=== PATIENT | female | born 1980 | race African-American/Black ===

== ENCOUNTER 2019-01-22 15:46 | Inpatient (IN) | payer BC, OTHER ==
[2019-01-22] VITALS (22 sets, daily range): BP systolic 109–151; BP diastolic 59–95
[~2019-01-22] VITALS: Ht 167.6 cm; Wt 66.3 kg
--- NOTE | 2019-01-22 15:50 | NUR ---
SEEN AND EXAMINED BY DR. NICOLE.
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
[2019-01-22] MEDS ORDERED: IV NS 0.9% 1,000 ML BAG IV ONE (16:00)
--- NOTE | 2019-01-22 16:00 | NUR ---
IV LINE ESTABLISHED, LABS DRAWNED AND SENT TO LAB.
[2019-01-22] MEDS ORDERED: DOCU100C36 PO (16:05)
[2019-01-22] MEDS ORDERED: FURO20TA4 PO (16:05)
[2019-01-22] MEDS ORDERED: LACT10SO PO (16:05)
[2019-01-22] MEDS ORDERED: FERR325T23 PO (16:05)
[2019-01-22] MEDS ORDERED: PROP10TA68 PO (16:05)
[2019-01-22] MEDS ORDERED: MAGN400O6 PO (16:05)
[2019-01-22] MEDS ORDERED: OMEG1CAP PO (16:05)
[2019-01-22] MEDS ORDERED: SPIR25TA6 PO (16:05)
[2019-01-22] MEDS ORDERED: MULT1TAB69 PO (16:05)
[2019-01-22] MEDS ORDERED: GABA-532 PO (16:05)
[2019-01-22] MEDS ORDERED: HYDR-3972 PO (16:05)
[2019-01-22] MEDS ORDERED: LANS15CA15 PO (16:05)
[2019-01-22] MEDS ORDERED: THIA100T74 PO (16:06)
--- NOTE | 2019-01-22 16:09 | NUR ---
COMPUTER GAME TESTER/MED RECON HISTORY AND MEDICATION INFORMATION OBTAINED FROM PATIENT PCP OFFICE (DR. MARILYN MIGUEL [phone]).
[2019-01-22 16:11] LABS: BASOPHILS % (AUTO) 1.2 % (0.0-2.0); LYMPHOCYTES # (AUTO) 0.8 /CMM (0.8-4.8); LYMPHOCYTES % (AUTO) 23.8 % (20.0-44.0); MEAN CORPUSCULAR HGB CONC 33 g/dl (31.0-36.0); MEAN CORPUSCULAR VOLUME 94 fL (82-100); MONOCYTES # (AUTO) 0.5 /CMM (0.1-1.30); NEUTROPHILS # (AUTO) 1.9 /CMM (1.8-8.9); PLATELET COUNT (AUTO) 59 /CMM (150-450); RED BLOOD CELL COUNT(AUTO) 2.27 MIL/uL (4.0-5.2); WHITE BLOOD COUNT (AUTO) 3.2 K/uL (4.3-11.0)
[2019-01-22 16:14] LABS: HEMOGLOBIN 6.9 g/dL (11.5-14.8)
[2019-01-22 16:15] LABS: HEMATOCRIT 21 % (33-45)
[2019-01-22 16:19] LABS: APPEARANCE,URINE Clear (CLEAR); BILIRUBIN,URINE Negative (NEGATIVE); BLOOD, URINE Negative Ery/uL (NEGATIVE); COLOR,URINE Yellow (YELLOW); KETONES,URINE Negative (NEGATIVE); LEUKOCYTE ESTERASE ,URINE Negative (NEGATIVE); NITRITE, URINE Negative (NEGATIVE); PH,URINE 8.5 (5.0-8.0); PROTEIN,URINE Negative (NEGATIVE); UGLUCOSE Negative (NEGATIVE)
--- NOTE | 2019-01-22 16:28 | NUR ---
Called pharmacy re: Lactulose order. Lactulose enema available from pharmacy. approved.
[2019-01-22] MEDS ORDERED: LACTULOSE UDC 200 G in SODIUM CHLORIDE IRRIG SOLUTION 400 ML IR ONE (16:30)
[2019-01-22] MEDS ORDERED: MISCELLANEOUS MED 1 EA EA XX ONE (16:30)
--- NOTE | 2019-01-22 16:31 | NUR ---
LITIGATION ASSOCIATE AT BEDSIDE FOR XRAY.
[2019-01-22 16:35] LABS: BACTERIA,URINE None seen /HPF (None Seen); RBC,URINE 0-2 /HPF (0-2); SQUAMOUS EPITHELIAL CELL,UR Few /HPF (None Seen); WBC,URINE NONE SEEN /HPF (0-3)
[2019-01-22 16:37] LABS: ALBUMIN 2.4 g/dL (3.4-5.0); BILIRUBIN,DIRECT 3.1 mg/dL (0.0-0.2); BILIRUBIN,TOTAL 5.7 mg/dL (0.2-1.0); CALCIUM, SERUM 7.6 mg/dL (8.5-10.1); CREATININE 0.7 mg/dL (0.6-1.3); POTASSIUM 4.1 mmol/L (3.5-5.1); TOTAL PROTEIN, SERUM 5.9 g/dL (6.4-8.2)
--- NOTE | 2019-01-22 16:40 | NUR ---
PT IS WHEELED TO CT SCAN VIA [facility].
--- NOTE | 2019-01-22 16:42 | NUR ---
REC'D LACTULOSE ENEMA FROM PHARMACY. DID NOT ADMINISTER THE UDC OR MISC DOSE ORDERED BY DR. INCOLE.
--- NOTE | 2019-01-22 16:43 | NUR ---
[facility] WAS CALLED AND AUTOMOBILE BRAKES BONDER WAS PAGED
[2019-01-22] MEDS ORDERED: LACTULOSE 10 G/15 ML UDC (PYXIS) PR ONE (17:00)
--- NOTE | 2019-01-22 17:02 | NUR ---
LACTULOSE ENEMA GIVEN USING SOUP SAD ENEMA BAG.
[2019-01-22 17:07] LABS: ACETAMINOPHEN 0 ug/ml (10-30); ALCOHOL, BLOOD < 3 mg/dL (0-0)
--- NOTE | 2019-01-22 17:09 | NUR ---
[facility] WAS CALLED AGAIN AND THE DR WAS PAGED
--- NOTE | 2019-01-22 17:11 | NUR ---
TALKED TO DEVIN LUMPIA WRAPPER MAKER REGARDING PATIENT'S STATUS.
[2019-01-22 17:14] LABS: LYMPHOCYTES % (MANUAL) 25 % (16-48); NEUTROPHILS % (MANUAL) 64 (42-76)
[2019-01-22 17:15] LABS: EOSINOPHILS % (MANUAL) 1 % (0-4); MONOCYTES % (MANUAL) 10 % (0-11.0)
--- NOTE | 2019-01-22 17:21 | NUR ---
[facility] CALLED BACK TO CONFIRM IF THE REGIONAL TRUCK DRIVER HAD CALLED BACK. STILL WAITING FOR REGIONAL TRUCK DRIVER
--- NOTE | 2019-01-22 17:44 | NUR ---
HOUSE SUP CALLED FOR ICU BED
--- NOTE | 2019-01-22 17:48 | NUR ---
ICU 256 BED GIVEN
--- NOTE | 2019-01-22 18:00 | NUR ---
Ronnie cortes in [facility] - 01/22/19 at 1818 by KRISTAN ICU BED 256 GIVEN
--- NOTE | 2019-01-22 18:08 | NUR ---
REPORT GIVEN TO AMANDEEP FOFANA FOR KENA.
[2019-01-22 18:11] LABS: ABG BASE EXCESS -1.8 mmol/L; ABG PCO2 23.4 mmHg (35.0-45.0); ABG PH 7.553 (7.350-7.450); ABG PO2 103.7 mmHg (75.0-100.0); COHb 1.8 % (0.5-1.5); MetHb 0.7 % (0.0-1.5); O2Hb 94.6 % (94.0-97.0); SITE, ABG Right Brachial; VENT MODE, BG ROOM AIR
[2019-01-22] MEDS ORDERED: Z GUARD REMEDY 2 OZ OINT TP PRN (19:00)
[2019-01-22] MEDS ORDERED: prednisoLONE 5 MG/5 ML UDC PO ONE (19:00)
[2019-01-22] MEDS ORDERED: ACETAMINOPHEN 325 MG TABLET PO PRN (19:00)
[2019-01-22] MEDS ORDERED: ONDANSETRON HCL/PF 4 MG/2 ML VIAL IVP PRN (19:00)
[2019-01-22] MEDS ORDERED: PHYTONADIONE INJ 10 MG/1 ML AMPUL SQ ONE (19:30)
[2019-01-22] MEDS: IV NS 0.9% 1,000 ML IV PRN (20:11)
--- NOTE | 2019-01-22 20:30 | NUR ---
1924 Received patient from ED via gurney unresponsive transferred to bed and made comfortable. Dx: Hepatic Encephalopathy.SR.VS stable.NPO status.Saline lock to right wrist got infiltrated when flushed and removed with needle intact.IVF NS started.With multiple bruises over the body Phots taken.FC to gravity.Continue monitoring.
--- NOTE | 2019-01-22 20:40 | NUR ---
NGT FR# 16 inserted to right nares.Placement verified by 2 RN.Patient tolerated procedure well.
[2019-01-22] MEDS: PENTOXIFYLLINE 400 MG TABLET.SA PO SCH (20:49)
[2019-01-22] MEDS ORDERED: IV NS 0.9% 250 ML IV ONE (21:30)
--- NOTE | 2019-01-22 22:00 | NUR ---
Patient desat to 89%.Place on 2L NC SPO2 up to 94%.No acute respiratory distress noted.
[2019-01-23] VITALS (35 sets, daily range): BP systolic 94–143; BP diastolic 52–102
--- NOTE | 2019-01-23 | NUR ---
Patient ammonia level 248.Lactulose given as ordered.Patient with large loose stools with blood clots.Bed bath rendered and complete linens changed.Turned and repositioned.Patient open her eyes during bath but still not following commands.
[2019-01-23] MEDS: LACTULOSE 10 G/15 ML UDC (PYXIS) GT SCH ×4 (00:05→17:38)
--- NOTE | 2019-01-23 02:00 | NUR ---
Patient H/H 6.08/04 One PRBC transfused without adverse reaction.VS stable.
[2019-01-23 05:16] LABS: BASOPHILS % (AUTO) 0.2 % (0.0-2.0); HEMATOCRIT 23 % (33-45); HEMOGLOBIN 7.8 g/dL (11.5-14.8); LYMPHOCYTES # (AUTO) 0.3 /CMM (0.8-4.8); LYMPHOCYTES % (AUTO) 13.5 % (20.0-44.0); MEAN CORPUSCULAR HGB CONC 34 g/dl (31.0-36.0); MEAN CORPUSCULAR VOLUME 92 fL (82-100); MONOCYTES # (AUTO) 0.2 /CMM (0.1-1.30); MONOCYTES % (AUTO) 10.2 % (2.0-12.0); NEUTROPHILS # (AUTO) 1.7 /CMM (1.8-8.9); NEUTROPHILS % (AUTO) 76.1 % (43.0-81.0); RED BLOOD CELL COUNT(AUTO) 2.52 MIL/uL (4.0-5.2); WHITE BLOOD COUNT (AUTO) 2.2 K/uL (4.3-11.0)
[2019-01-23 05:22] LABS: ALBUMIN 2.3 g/dL (3.4-5.0); CALCIUM, SERUM 7.6 mg/dL (8.5-10.1); CREATININE 0.8 mg/dL (0.6-1.3); MAGNESIUM 1.5 mg/dL (1.8-2.4); PHOSPHORUS 3.7 mg/dL (2.5-4.9); POTASSIUM 3.5 mmol/L (3.5-5.1); TOTAL PROTEIN, SERUM 5.7 g/dL (6.4-8.2)
[2019-01-23 05:26] LABS: THYROID STIMULATING HORMONE 0.602 uIU/mL (0.358-3.74)
[2019-01-23 05:45] LABS: PLATELET COUNT (AUTO) 49 /CMM (150-450)
[2019-01-23 06:18] LABS: LYMPHOCYTES % (MANUAL) 15 % (16-48)
[2019-01-23 06:19] LABS: MONOCYTES % (MANUAL) 10 % (0-11.0); NEUTROPHILS % (MANUAL) 75 (42-76)
--- NOTE | 2019-01-23 07:00 | NUR ---
Patient latest H/H 6.12/01 relayed to with orders received and carried out.To transfuse 2 more units PRBC.Report given to day shift RN for continuity of care. Addendum: 01/23/19 at 0721 by ANEUDY VAZQUEZ RN Wrong entry please disregard.Belongs to another patient.
--- NOTE | 2019-01-23 07:00 | NUR ---
Patient remains unresponsive had another large loose BM Burgundy colored.Kept clean and dry. Turned and repositioned.Platelets 49 relayed to Kinga Castaneda NP.No orders received.Report given to day shift RN for continuity of care.
--- NOTE | 2019-01-23 07:50 | NUR ---
RN NOTE RECEIVED PATIENT ALERT AND NONVERBAL ,BUT IS ABLE TO OPEN EYES TO VOICE AND TACTILE STIMULI. BREATHING EVEN AND UNLABORED WITH NO DISTRESS NOTED. ON RN CRITICAL CARE HR 108. NOTED WITH MULTIPLE BRUISING AND RIGHT EYE SWELLING AND BILATERAL UPPER EXTREMITY EDEMA. IV SITE INTACT AND PATIENT WITH ONGOING FLUIDS ORDERED. ALL SAFETY MEASURES DONE . BED LOW AND LOCKED POSITION WILL CONTINUE TO MONITOR PATIENT CLOSELY
[2019-01-23] MEDS: IV NS 0.9% 1,000 ML IV PRN (08:43)
[2019-01-23] MEDS: PENTOXIFYLLINE 400 MG TABLET.SA PO SCH ×3 (09:26→17:38)
[2019-01-23 10:23] LABS: OCCULT BLOOD STOOL POSITIVE (NEGATIVE)
[2019-01-23] MEDS: Magnesium 1GM/D5W 100ML PREMIX 100 ML IV SCH ×2 (10:57→11:58)
--- NOTE | 2019-01-23 14:25 | NUR ---
RN NOTE CALLED MD, PATIENT NON-COMPLIANT WANTING TO GET OUT OF BED, NEW ORDERS RECEIVED OK FOR BILATERAL WRIST RESTRAINTS.
--- NOTE | 2019-01-23 16:45 | NUR ---
RN NOTE BILATERAL RESTRAINTS IN PLACE, GOOD CIRCULATION, SKIN CHECK DONE, AND RELEASE OF RESTRAINT WAS DONE. WILL CONTINUE TO MONITOR PATIENT ON RESTRAINTS.
--- NOTE | 2019-01-23 18:48 | NUR ---
RN NOTE PATIENT REMAINED STABLE THROUGHOUT SHIFT. NO ACUTE CHANGES OR DISTRESS NOTED. WILL ENDORSE TO NEXT SHIFT TO CONTINUE TO MONITOR PATIENT CONTINUITY OF CARE.
--- NOTE | 2019-01-23 19:30 | NUR ---
HEARING CARE PRACTITIONER NOTE RECEIVED PT A/O X1 AND NOTED WITH CONFUSION AND INAPPROPRIATE WORDS. ON ROOM AIR AND SATURATING WELL. BREATHING REGULAR AND UNLABORED. R NARE NGT IN PLACE AND CLAMPED. NOTED TO BE RESTLESS, AGITATED AND TRYING TO GET OUT OF BED. ON BILATERAL SOFT WRIST RESTRAINTS WITH BILATERAL RADIAL PULSES PALPABLE BILATERALLY. BED ALARM ENABLED AND BED LOCKED IN PLACE. WILL CONTINUE TO MONITOR.
[2019-01-24] VITALS (37 sets, daily range): BP systolic 69–170; BP diastolic 30–128
--- NOTE | 2019-01-24 | NUR ---
CONVENTIONAL MACHINIST NOTE PT NOTED WITH DIARRHEA. SPOKE WITH PLANT TECHNICIAN/CONTROL ROOM OPERATOR KELSI DUPLICATING MACHINE MECHANIC WITH ORDERS TO INSERT RECTAL TUBE. ORDERS NOTED AND CARRIED OUT. WILL MONITOR.
[2019-01-24] MEDS: LACTULOSE 10 G/15 ML UDC (PYXIS) GT SCH ×4 (01:00→17:27)
[2019-01-24] MEDS: IV NS 0.9% 1,000 ML IV PRN (01:00)
[2019-01-24 04:40] LABS: BASOPHILS % (AUTO) 0.5 % (0.0-2.0); EOSINOPHILS % (AUTO) 0.4 % (0.0-6.0); HEMATOCRIT 22 % (33-45); HEMOGLOBIN 7.4 g/dL (11.5-14.8); LYMPHOCYTES # (AUTO) 0.7 /CMM (0.8-4.8); LYMPHOCYTES % (AUTO) 17.6 % (20.0-44.0); MEAN CORPUSCULAR HGB CONC 33 g/dl (31.0-36.0); MEAN CORPUSCULAR VOLUME 93 fL (82-100); MONOCYTES # (AUTO) 0.5 /CMM (0.1-1.30); NEUTROPHILS # (AUTO) 2.9 /CMM (1.8-8.9); NEUTROPHILS % (AUTO) 69.5 % (43.0-81.0); RED BLOOD CELL COUNT(AUTO) 2.39 MIL/uL (4.0-5.2); WHITE BLOOD COUNT (AUTO) 4.2 K/uL (4.3-11.0)
[2019-01-24 04:49] LABS: PLATELET COUNT (AUTO) 48 /CMM (150-450)
[2019-01-24 05:06] LABS: ALBUMIN 2.6 g/dL (3.4-5.0); BILIRUBIN,TOTAL 6.4 mg/dL (0.2-1.0); CALCIUM, SERUM 8.4 mg/dL (8.5-10.1); CREATININE 0.9 mg/dL (0.6-1.3); MAGNESIUM 1.9 mg/dL (1.8-2.4); TOTAL PROTEIN, SERUM 6.2 g/dL (6.4-8.2)
[2019-01-24 05:15] LABS: LYMPHOCYTES % (MANUAL) 10 % (16-48); MONOCYTES % (MANUAL) 5 % (0-11.0); NEUTROPHILS % (MANUAL) 85 (42-76)
--- NOTE | 2019-01-24 05:45 | NUR ---
TIMBER PACKER NOTE PT PULLED OUT BOTH IV'S. PT CLEANED UP AND MADE COMFORTABLE. NURSE AND CHARGE TRIED INSERTING NEW PERIPHERAL IV AND UNABLE TO DO SO. SPOKE WITH INKING MACHINE TENDER KELSI CARUSO WITH ORDERS FOR MIDLINE AND TO KEEP PT WITHOUT IV ACCESS THROUGH THE MORNING UNTIL MIDLINE INSERTION. ORDERS NOTED AND CARRIED OUT.
--- NOTE | 2019-01-24 07:30 | NUR ---
ngt PULLED OUT DESPITE RESTRAINTS
--- NOTE | 2019-01-24 07:53 | NUR ---
WOUND CARE CONSULT: PT PRESENTS WITH MULTIPLE AREAS OF BRUISING AND BLISTERS TO RT FOREARM, PRESENT ON ADMISSION. PT DEMONSTRATES ABILITY TO ASSIST WITH TURNING AND REPOSITIONING IN BED. RECTAL TUBE IN PLACE FOR LIQUID STOOLING. RECOMMENDATIONS MADE FOR SKIN PROTECTION AND DISCUSSED WITH NURSING STAFF. WILL SEE PRN. CURRENT AGNIESZKA SCORE IS 14. MD IN AGREEMENT WITH PLAN OF CARE. Addendum: 01/24/19 at 0755 by RODNEY GAYTAN WNDNU Amended: Links added.
--- NOTE | 2019-01-24 08:00 | NUR ---
FR 14 NGT INSERTED THRU R NARE WITHOUT EVENTS
--- NOTE | 2019-01-24 08:40 | NUR ---
REPORT RECEIVED FROM ORAL BERNSTEIN; ON BILATERAL SOFT WRIST RESTRAINTS; ATEMMTPTING TO GET OUT OF BED; ORIENTED TO SELF ; DOESNT ANSWER ALL QUESTIONS APPROPRIATELY; NEEDS REPOSITIONING ALMOST EVERY 5 MINUTES
--- NOTE | 2019-01-24 09:00 | NUR ---
NGT PULLED OUT DESPITE RESTRAINTS
--- NOTE | 2019-01-24 10:00 | NUR ---
LEFT UPPER ARM MIDLIN G 20 L BRACHIAL PLACED BY CHAITANYA
[2019-01-24] MEDS: PENTOXIFYLLINE 400 MG TABLET.SA PO SCH ×3 (10:11→17:27)
--- NOTE | 2019-01-24 10:30 | NUR ---
SEEN BY dR MATOS AT BEDSIDE WITH ORDERS; OKD CLEAR LIQUIDS; LINENS CHANGED
[2019-01-24] MEDS ORDERED: Potassium Chloride 40 MEQ in IV D5W 1,000 ML IV PRN (10:48)
[2019-01-24] MEDS ORDERED: PENTOXIFYLLINE PO (11:06)
[2019-01-24] MEDS ORDERED: LACT10SO6 GT (11:06)
--- NOTE | 2019-01-24 14:43 | NUR ---
VERY CONFUSED; REPETEADLY ATTEMPTS TO GET OUT OF BED; MUNCHING ON RESTRAINTS DESPITE INSTRUCTIONS
--- NOTE | 2019-01-24 17:12 | NUR ---
REMAINS NONCOMPLIANT DESPITE RESTRAINTS; 1;1 SITTER (SAI SHARP) ATBEDSIDE INITIATED FOR SAFETY;
--- NOTE | 2019-01-24 19:12 | NUR ---
REPORT GIVEN TO JAMAAL BERNSTEIN
--- NOTE | 2019-01-24 19:26 | NUR ---
REPORT GIVEN TO IT HELP DESK MANAGER OF [facility] ANA MAZARIEGOS; ALL QUESTIONS ANSWERED
--- NOTE | 2019-01-24 19:48 | NUR ---
CARROTER. INITIAL ASSESSMENT. RECEIVED THE PT REST ON THE BED. AWAKE, ALERT, MORE ANXIOUS. SITTER AT BED SIDE. PT ON ROOM AIR. SAT 99%. NO ACUTE DISTRESS NOTED. LINOLEUM INSTALLER SHOWING S TACH. FC PATENT. FLEXA SEAL INTACT. LT UPPER ARM MID LINE. IVF D5WIN POTASSIUM 40MEQ @ 80ML/H. HOB ELEVATED. TODAY PT TRANSFER TO [facility]. WILL CONTINUE TO MONITOR VITALS.
--- NOTE | 2019-01-24 21:09 | NUR ---
RETAIL PERFORMANCE SPECIALIST. TRANSFER THE PT TO [facility]. REPORT GIVEN TO AMBULANCE AMANDEEP RICHARDSON..
== END 2019-01-24 21:04 | disposition short-term general hospital (02) | DRG 279 ==
LOC: ER 15:46 → ICU 17:55
PROVIDERS: ADMIT Nurse Practitioner Acute Care; ATTEND Family Medicine
PROC: 30233N1 Transfusion of Nonautologous Red Blood Cells into Peripheral Vein, Percutaneous Approach (ICD-10-PCS; principal; 2019-01-22)
PROC: B547ZZA Ultrasonography of Left Subclavian Vein, Guidance (ICD-10-PCS; 2019-01-24)
PROC: 05H633Z Insertion of Infusion Device into Left Subclavian Vein, Percutaneous Approach (ICD-10-PCS; 2019-01-24)
DX: K72.90 Hepatic failure, unspecified without coma (principal); D61.818 Other pancytopenia; I12.0 Hypertensive chronic kidney disease with stage 5 chronic kidney disease or end stage renal disease; E87.0 Hyperosmolality and hypernatremia; K76.6 Portal hypertension; N18.6 End stage renal disease; Z90.49 Acquired absence of other specified parts of digestive tract; Z79.899 Other long term (current) drug therapy; E87.6 Hypokalemia; K74.60 Unspecified cirrhosis of liver; D64.9 Anemia, unspecified
CPT/HCPCS: 36415; 36569; 36600; 70450-TC; 71045-TC; 80048-TC; 80053-TC; 80061-TC; 80074; 80076-TC; 80305; 81000-TC; 82140-TC; 82272-TC; 83540-TC; 83605-TC; 83735-TC; 84100-TC; 84443-TC; 84484-TC; 84703-TC; 85025-TC; 85045-TC; 85730-TC; 86850-TC; 86921-TC; 87040-TC; 87081-TC; 87086-TC; 93307-TC; A4217; G0378; G0480; J3430; J3475; J3480; J7030; J7050; J7070; J7510; P9016-BL

== ENCOUNTER 2019-03-28 13:27 | Emergency (ER) | payer BC, MEDICAID ==
[~2019-03-28] VITALS: Ht 157.5 cm; Wt 59.0 kg
[~2019-03-28 13:27] MED LIST: DOCU100C36 PO; FERR325T23 PO; FURO20TA4 PO; GABA-532 PO; HYDR-3972 PO; LACT10SO PO; LACT10SO6 GT; LANS15CA15 PO; MAGN400O6 PO; MULT1TAB69 PO; OMEG1CAP PO; PENTOXIFYLLINE PO; PROP10TA68 PO; SPIR25TA6 PO; THIA100T74 PO
[2019-03-28 13:39] VITALS: BP 135/71
--- NOTE | 2019-03-28 14:04 | NUR ---
Patient left without being seen by ER Physician. NOTIFIED
--- NOTE | 2019-03-28 14:06 | NUR ---
[employer] REPORT 9 TEE 23 NOLAN COOK/KATARINA
== END 2019-03-28 14:09 | disposition left against medical advice (07) ==
LOC: ER 13:29
DX: Z53.21 Procedure and treatment not carried out due to patient leaving prior to being seen by health care provider (principal); I12.0 Hypertensive chronic kidney disease with stage 5 chronic kidney disease or end stage renal disease; N18.6 End stage renal disease; D64.9 Anemia, unspecified; Z90.49 Acquired absence of other specified parts of digestive tract; Z98.890 Other specified postprocedural states